=== PATIENT | male | born 1990 | race Caucasian/White ===

== ENCOUNTER 2016-07-24 16:59 | Emergency (ER) | payer OTHER ==
[2016-07-24] MEDS ORDERED: NO HOME MEDICATION XX (17:10)
[2016-07-24] MEDS ORDERED: CILOXAN5 M1 LEFT EYE (18:21)
[2016-07-24] MEDS ORDERED: ULTRAM50 M1 PO (18:25)
== END 2016-07-24 18:27 ==
LOC: EDMED 16:59
DX: S05.02XA Injury of conjunctiva and corneal abrasion without foreign body, left eye, initial encounter (principal); W22.8XXA Striking against or struck by other objects, initial encounter